=== PATIENT | female | born 1965 | race Caucasian/White ===

== ENCOUNTER 2016-09-07 11:08 | Emergency (ER) | payer SELFPAY ==
[~2016-09-07 11:08] MED LIST: Iopamidol 370 76% 100 ML VIAL ONE
[2016-09-07] MEDS ORDERED: Ondansetron HCl/PF 4 MG/2 ML Vial ONE (11:46)
[2016-09-07] MEDS ORDERED: Sodium Chloride 0.9% 1,000 ML ONE ×2 (11:46→13:34)
[2016-09-07 12:25] LABS: ALT (SGPT) 42 U/L (0-55); AST (SGOT) 37 U/L (5-34); Albumin 4.3 g/dL (3.5-5.0); Alkaline Phosphatase 91 U/L (40-150); Anion Gap 21 mmol/L (10-20); BUN (Urea Nitrogen) 15 mg/dL (9.8-20.1); Bilirubin, Total 0.9 mg/dL (0.2-1.2); Calc. Creatinine Clearance 0 mL/min (70-130); Calcium 9.4 mg/dL (7.8-10.44); Carbon Dioxide 18 mmol/L (22-29); Chloride 95 mmol/L (98-107); Estimated GFR-MDRD 51; Globulin 3.7 g/dL (2.4-3.5); Glucose 255 mg/dL (70-105); Potassium 3.9 mmol/L (3.5-5.1); Sodium 130 mmol/L (136-145)
[2016-09-07 12:44] LABS: Hemoglobin 18.9 g/dL (12.0-16.0); Mean Corpuscular HGB CONC 33.6 g/dL (32.0-36.0); Mean Corpuscular Hemoglobin 31.9 pg (27.0-31.0); Mean Corpuscular Volume 94.9 fl (81.0-99.0); Platelet Count 276 thou/uL (130-400); RBC Distribution Width 12.1 % (11.5-14.5); Red Blood Cell (RBC) Count 5.94 mill/uL (4.20-5.40); White Blood Cell (WBC) Count 22.8 thou/uL (4.8-10.8)
[2016-09-07 12:46] LABS: Anisocytosis SLIGHT = 6-15 cells (100X) (0-5/hpf); Band 5 % (5-11); Lymphocytes 10 % (21-51); MDiff Complete? YES; Monocytes 4 % (0-10); Neutrophil 81 % (42-75); Polychromasia SLIGHT = 2-3 cells (100X) (0-2/hpf)
[2016-09-07 13:40] LABS: Pregnancy Test - Urine (BHCG) NEGATIVE (NEGATIVE); Pregu Control Bar Appear? YES (CONTROL BAR)
[2016-09-07] MEDS ORDERED: Morphine Sulfate 2 MG/ML SYRINGE ONE (13:40)
[2016-09-07 13:52] LABS: Base Excess -4.2 mEq/L (0 (+/- 2.5))
--- NOTE | 2016-09-07 14:06 | CT ---
NONCONTRAST HEAD CT HISTORY: Headache. COMPARISON: 03/25/2015 TECHNIQUE: A noncontrast head CT is performed from the skull base to the skull vertex. FINDINGS: No parenchymal hemorrhage. No extraaxial hematoma. No midline shift. The basilar cisterns are pat ent. Brain volume is age appropriate. Cortical rodriguez white matter differentiation is preserved. Th e ventricles and sulci are patent and symmetric. The calvarium is intact. There is paranasal sinus mucosal thickening. Adequate aeration of the mas toid air cells. IMPRESSION: 1. No acute intracranial process. 2. Mucosal thickening of the sinuses. POS: [facility]
[2016-09-07 14:20] LABS: Bilirubin Negative (Negative); Blood, Urine Large (Negative); Clarity Clear (Clear); Glucose, Urine (Dipstick) 250 mg/dL (Negative); Leukocyte Negative (Negative); Nitrite Negative (Negative); Protein, Urine (Dipstick) Trace mg/dL (Neg-Trace)
--- NOTE | 2016-09-07 14:20 | CT ---
POST CONTRAST SOFT TISSUE NECK CT HISTORY: Headache. Sore throat. Lymphadenopathy. COMPARISON: None. TECHNIQUE: A post contrast soft tissue neck CT is performed in the axial plane. Sagittal and coronal reformatt ed images are submitted for interpretation. FINDINGS: The visualized brain parenchyma and orbits are unremarkable. The aerodigestive tract is patent. No mucosal abnormality. Midline fatty raphe of the tongue is pr eserved. Symmetric attenuation of the parotid and submandibular glands. Symmetric attenuation of t he sternocleidomastoid muscles. Of note, the right sternocleidomastoid muscle is slightly larger th an the contralateral side. Significance is uncertain. There is atherosclerosis of both carotid bifurcations and proximal internal carotid arteries. No ev idence of high grade stenosis. Limited evaluation by technique. No prevertebral soft tissue swelling. The epiglottis has a normal caliber. Pre-epiglottic fat is preserved. No prevertebral soft tissue s welling. The upper mediastinum is unremarkable. Mild emphysematous changes of the anterior medial left upper lobe and medial right upper lobe. Varying degrees of central canal stenosis and foraminal narrowing, on the basis of degenerative bolivar ge. Sinus opacification is identified. There appears to be a remote injury involving the left maxillary sinus. The patient is edentulous. There are enlarged soft tissue neck lymph nodes. There is a conglomeration of enlarged right level 5 lymph nodes, measuring 0.8 x 1.7 cm. Enlarged right level 5 lymph node, measuring 1.0 x 0.9 cm. Enlarged left level 5 lymph node, measuring 1.1 x 0.9 cm. Enlarged left occipital soft tissue lymph node, measuring 1.3 x 0.8 cm. No evidence of a discrete abscess or mass in the visualized soft tis tracie neck structures. IMPRESSION: Bilateral predominantly level 5 lymphadenopathy. The lymphadenopathy is presumed to be due to an in fectious or inflammatory process. Malignancy cannot be excluded. Correlate clinically. POS: [facility]
[2016-09-07 14:29] LABS: RBC/HPF 0-3 HPF (0-3); Squamous Epithelial 0-3 HPF (0-3); WBC/HPF 0-3 HPF (0-3)
[2016-09-07] MEDS ORDERED: cefTRIAXone\\ROCEPHIN 1 GM VIAL ONE (14:47)
[2016-09-07] MEDS ORDERED: Sodium Chloride 0.9% 100 ML ONE ×2 (14:47→15:27)
== END 2016-09-07 16:00 | disposition short-term general hospital (02) ==
LOC: NAV ERS 11:08
DX: R51 Headache (principal); D72.829 Elevated white blood cell count, unspecified; J45.909 Unspecified asthma, uncomplicated; F17.210 Nicotine dependence, cigarettes, uncomplicated; Z79.899 Other long term (current) drug therapy
CPT/HCPCS: 70450; 70491; 80053; 81003; 81015; 81025; 82805; 83605; 85025; 87081; 87430; 96361; 96365; 96375; 96376; J0696; J2270; J2405; J3370; J7050

== ENCOUNTER 2017-03-15 11:46 | Emergency (ER) | payer SELFPAY, OTHER ==
[2017-03-15] MEDS ORDERED: HYDROcodone/Acetaminophen 10/325 mg Tablet ONE (12:10)
--- NOTE | 2017-03-15 12:30 | RAD ---
2 VIEWS LEFT HIP: Date: 03/15/17 INDICATION: Left hip injury. COMPARISON: None. FINDINGS: No acute fracture or subluxation is evident. SI joints are normal appearing. IMPRESSION: No acute osseous abnormality. POS: [facility]
--- NOTE | 2017-03-15 13:33 | RAD ---
2 VIEWS LEFT FOREARM: Date: 03/15/17 INDICATION: Injury. FINDINGS: There is metallic foreign density resembling a needle within the radial soft tissues of the distal l eft forearm measuring 1.2 cm. Radiocapitellar alignment appears within normal limits. There is soft tissue swelling of the left forearm. IMPRESSION: Metallic radiopaque foreign body within the radial soft tissues of the distal left forearm. No acute osseous abnormalities. POS: [facility]
--- NOTE | 2017-03-15 13:34 | RAD ---
2 VIEWS LEFT WRIST: Date: 03/15/17 INDICATION: Left wrist injury. COMPARISON: None. FINDINGS: There is a radiopaque foreign body within the regional soft tissues of the distal forearm. There is no acute fracture or subluxation. Carpal alignment appears within normal limits. There is soft tissu e swelling of the left wrist. IMPRESSION: Soft tissue swelling of left wrist with radiopaque foreign body. POS: [facility]
--- NOTE | 2017-03-15 13:41 | RAD ---
EXAM: LEFT ELBOW 4 VIEWS: HISTORY: Injury. Pain. COMPARISON: None. FINDINGS: There is soft tissue swelling. No joint effusion. No malalignment or fracture. IMPRESSION: No posttraumatic change. POS: [facility]
== END 2017-03-15 14:03 | disposition home or self-care (01) ==
LOC: NAV ERS 11:46
DX: S70.02XA Contusion of left hip, initial encounter (principal); S40.022A Contusion of left upper arm, initial encounter; S50.852A Superficial foreign body of left forearm, initial encounter; S50.312A Abrasion of left elbow, initial encounter; J45.909 Unspecified asthma, uncomplicated; F17.210 Nicotine dependence, cigarettes, uncomplicated; V87.8XXA Person injured in other specified noncollision transport accidents involving motor vehicle (traffic), initial encounter
CPT/HCPCS: 29125